=== PATIENT | female | born 1985 | race Two or more races ===

== ENCOUNTER 2021-07-06 10:41 | Day surgery (SDC) | payer MEDICAID, OTHER ==
[2021-07-05 09:46] LABS: COVID AG,FIA SOURCE NASOPHARYNGEAL
[~2021-07-06] VITALS: Ht 160 cm; Wt 111.4 kg
[~2021-07-06 10:41] MED LIST: SODIUM CHLORIDE 0.9% 1,000 ML IV ONE; SODIUM CHLORIDE 0.9% 1,000 ML ONE
[2021-07-06] MEDS ORDERED: PROPOFOL 1% 20 ML VIAL IVP ONE (10:42)
[2021-07-06] MEDS ORDERED: OMEP20 PO (11:12)
[2021-07-06] MEDS ORDERED: METO-296 PO (11:12)
[2021-07-06] MEDS ORDERED: FAMO20 PO (11:12)
== END 2021-07-06 14:25 | disposition home or self-care (01) ==
LOC: SURGERY 10:41
PROVIDERS: ATTEND Internal Medicine Gastroenterology
DX: K64.8 Other hemorrhoids (principal); K29.70 Gastritis, unspecified, without bleeding; K21.9 Gastro-esophageal reflux disease without esophagitis; F41.9 Anxiety disorder, unspecified; Z79.899 Other long term (current) drug therapy; Z98.890 Other specified postprocedural states; Z68.41 Body mass index [BMI] 40.0-44.9, adult
CPT/HCPCS: 45380; 43239; 84703; 87426; C1769; C9803; J2704; J7030; 88304